=== PATIENT | male | born 1990 | race Caucasian/White ===

== ENCOUNTER 2024-05-03 08:50 | Day surgery (SDC) | payer SELFPAY, OTHER ==
[2024-05-03] VITALS (11 sets, daily range): BP systolic 96–119; BP diastolic 45–76; PULSE 58–74; RESP 16; TEMP 36.1–36.6; O2SAT 90–100; BMI 21.8
--- NOTE | 2024-05-03 09:07 | PRE.ANES_ITS ---
ASA Classification* ASA Classification ASA Classification: 2 Assessment & Plan Anesthesia* Anesthesia Assessment Anesthesia Assessment: Discussed sedation and/or anesthesia options, risks, benefits, and alternatives with patient/parents/legal guardian/POA. Questions invited. The patient/parents/legal guardian/POA seems to understand and agrees to proceed with anesthesia plan. Reviewed the physical assessment, medical history, allergy history and patient home medications list prior to surgery/procedure/anesthetic and documented any changes. Performed airway and anesthesia risk assessments. Anesthesia Type Anesthesia Type: General Anesthesia Focused Assessment* Airway Assessment Mouth opens: >3 cm Mallampati Score: II Focused Labs Anesthesia Preop lab: CBC CHEMISTRY COAG Pre-Assessment Diagnosis/Proposed Procedure Planned Operative Procedure(s): (R) Lap Robotic Right Inguinal Hernia w/mesh poss bilateral Anesthesia History Anesthesia History - personalized living assistant: Anesthesia History - personalized living assistant Hx Hospitalization No 04/19/24 08:06 Any Problems With Anesthesia No 04/19/24 08:06 Cholinesterase deficiency No 04/19/24 08:06 You/Your Family Experience No 04/19/24 08:06 fever (hyperthermia) with Relationship Recent Exposure to Contagious Disease Does patient have nerve No 04/19/24 08:06 stimulator Patient instructed to have device shut off --Does patient have Pacemaker or ICD? When Was Last Pacemaker Check QUESTION #4 FULL TEXT: You/Your Family Experience fever (hyperthermia) with Anesthesia Last Oral Intake Last Oral intake: Last Oral Intake NPO since Meds taken in AM with sips of water? Meds patient instructed to take am of surgery PONV PONV - personalized living assistant: PONV - personalized living assistant Female No 04/19/24 08:06 HX of Motion Sickness No 04/19/24 08:06 HX of N/V After Surgery No 04/19/24 08:06 Non-Smoker Yes 04/19/24 08:06 Duration of Surgery greater Yes 04/19/24 08:06 than 60 minutes Number of Risk Factors 2 04/19/24 08:06 PONV Score Moderate Risk 04/19/24 08:06 Height & Weight Height & Weight: Anesthesia: Height & Weight Height 6 ft 1 in 04/09/24 09:14 Respiratory Assessment Respiratory Assessment - personalized living assistant: Respiratory Tract Infection Hx - personalized living assistant Hx Respiratory Tract Infection No 04/19/24 08:06 STOP Sleep Apnea STOP Sleep Apnea - personalized living assistant: STOP Sleep Apnea - personalized living assistant Hx Hypertension No 04/19/24 08:06 Hx Sleep Apnea No 04/19/24 08:06 CPAP BIPAP Do you snore loudly (louder No 04/19/24 08:06 than talking or can be heard Do you often feel tired/ No 04/19/24 08:06 fatigued/ sleepy during daytime? Has anyone observed you stop No 04/19/24 08:06 breathing during sleep? STOP Results Negative 04/19/24 08:06 QUESTION #5 FULL TEXT : Do you snore loudly (louder than talking or can be heard through closed doors)? 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 Specify any problems Hx of Preganancy in last 3 N/A 04/19/24 08:06 Months Nurse Filling Out Transfusion [facility] 04/19/24 08:06 & Questions: Date: 04/19/24 04/19/24 08:06 Time: 08:10 04/19/24 08:06 Patient unable to answer at this time (ie. confused, unrespo /Reproduction History /Reproductive History - personalized living assistant: /Reproductive Hx- personalized living assistant Hx Now Gestational Age (in weeks): EDC: Hx Hx Para Hx Section SAB Active Medications Active Medications: Current Medications Generic Name Dose Route Start Last Admin Trade Name Freq PRN Reason Stop Dose Admin Cefazolin Sodium 2 gm/ N/A 20 mls @ 400 mls/hr 05/03/24 10:30 IV 05/03/24 10:32 PREOP ONE Sodium Chloride 1,000 mls @ 15 mls/hr 05/03/24 08:55 IV 05/08/24 22:14 .Q48H [facility] Protocol PFSH Medical History Right inguinal hernia Home Medications ?Medication ?Instructions ?Recorded ?Last Taken ?Type NK 04/09/24 Unknown History Allergy/AdvReac Type Severity Reaction Status Date / Time No Known Allergies Allergy Verified 04/19/24 08:05 Surgical History No history of previous surgery Social History Smoking Status: Never smoker alcohol intake: never substance use type: does not use Review of Systems (Anesthesia) ROS Narrative System reviewed and no additional complaints, except as documented.
--- NOTE | 2024-05-03 09:12 | HP.PCM_ITS ---
History and Physical Date of Admission: 05/03/24 Date of Service: 04/09/24 MR#: [id number] Acct: [id number] Name: LOLA LEDBETTER Rep #: [id number] : 1990 Provider: Dr. Roxi Stevenson MD Age/Sex: 33/M Location: [facility] Status: Signed Intake Vital Signs 04/09/2409:14 Height 6 ft 1 in Weight: 167 lb 8 oz BMI 22.1 BP 118/79 Blood Pressure Location Rt brachial Position Sitting Respiration 18 Pulse 71 Pulse Source Monitor Temp 97.5 F L Temp Source Temporal Pulse Oximetry (%) 98 Oxygen Delivery Method room air Intake Visit Reasons: R INGUINAL HERNIA Chief Complaint: R inguinal hernia Accompanied by: Is patient in pain?: No Allergies No Known Allergies Allergy (Unverified 04/09/24 09:15) Medications ?Medication ?Instructions ?Recorded ?Confirmed ?Type NK 04/09/24 04/09/24 History PFSH Medical History (Updated 04/09/24 @ 09:13 by Carmina Zhang LPN) Right inguinal hernia Social History (Updated 04/09/24 @ 09:14 by Carmina Zhang LPN) Smoking Status: Never smoker alcohol intake: never substance use type: does not use HPI HPI HPI: 33-year-old male presents due to right inguinal hernia. Patient states he has had this for about 3 years. Patient states it does cause him some soreness and is interested in having it repaired. Patient states he does reduce and he lays down however soon as he stands up it comes right back out. ROS General General: No weight change, appetite, fatigue, colon cancer, breast cancer or weakness HEENT HEENT: No difficulty swallowing, eye injury, eye surgery, swollen glands or hoarseness Endo Endocrine: No thyroid disease, diabetes mellitus, thyroid cancer, Hair loss, heat intolerance or cold intolerance Skin Skin: No rash or changing moles Musc Musculoskeletal: No back problems, arthritis, rheumatoid arthritis, gout or joint pain Cardio Cardiovascular: No murmur, pacemaker, heart disease, atrial fibrillation, high blood pressure, heart attack, heart stent, palpitations, shortness of breat with exertion or chest pain Psych Psychiatric: No depression, anxiety or hearing voices Resp Respiratory: No shortness of breath, No sleep apnea, No cough, No COPD, No asthma, No emphysema and No wheezing Gastro Gastrointestinal: No abdominal pain, No nausea or vomiting, No diarrhea, No constipation, No blood in stool, No acid reflux, No hemorrhoids, No ulcers, No gallbladder problem and No black,tarry stools [place] Hematologic: No blood thinners, No blood disorders, No bleeding, No anemia and No blood clots Neuro Neurologic: No numbness, No tingling and No weakness Exam Const General: cooperative, healthy appearing, comfortable and no acute distress [facility] Head: normocephalic and atraumatic Neck Neck: supple Resp Effort & Inspection: normal respiratory effort Cardio Rate: regular rate GI Inspection: non-distended Palpation: soft, no hernias and nontender Other: Right inguinal hernia?reducible no obvious hernia on the left side. Skin General: no rashes or lesions noted Neuro General: CN's II-XI intact bilaterally Extrem General: normal to inspection Psych Mental Status: mental status grossly normal Attitude: cooperative Assessment and Plan Assessment and Plan (1) Right inguinal hernia: Status: Acute Plan Plan to do a Robotic right inguinal hernia with mesh, possible bilateral. Reviewed the procedure with the patient including the risks, including but not limited to infection, bleeding, paresthesia, chronic pain, injury to small bowel or contents of the spermatic cord, and recurrence. All questions were answered. Roxi Stevenson M.D. Pager: [phone] [facility] [address] [place] [address], [address] [place] [address] Office: [phone] Coding Level of Care Code Off vis,new,level 3 Diagnoses Right inguinal hernia K40.90 04/11/24 0910 <Electronically signed by Roxi Stevenson MD> Date Roxi Stevenson MD
[2024-05-03] MEDS: 0.9% Normal Saline (1000mL) 1,000 ML 15 ML IV (09:27)
[2024-05-03] MEDS: Cefazolin 2 GM in Syringe IV (10:15)
[2024-05-03] MEDS: Bupivacaine Mpf 0.5% 30 ML VIAL (10:47)
--- NOTE | 2024-05-03 11:59 | PCM.OPRPT ---
Operative Report (Standard) Operative Information Date of Procedure: 05/03/24 Pre-Operative Diagnosis: Right inguinal hernia Post-Operative Diagnosis: Right indirect inguinal hernia Surgery/Procedure Performed: Robotic right inguinal hernia pair with mesh simplex printer installer: Yes Edge Dyer: Dmitry Priest Tasks completed by promotional advertising assistant: Opening & closing Type of Anesthesia: General/Supplemental RN Documented Start/Stop Times: Operation Date: 05/03/24 10:30 Case Time Into Pre-Op 05/03/24 08:54 Out of Pre-Op 05/03/24 10:07 Anesthesia Start 05/03/24 10:09 Into Room 05/03/24 10:09 Procedure Start 05/03/24 10:28 Procedure End 05/03/24 12:10 Anesthesia End 05/03/24 12:13 Out of Room 05/03/24 12:13 Into Recovery 05/03/24 12:17 Into Phase II Recovery 05/03/24 13:31 Out of Recovery 05/03/24 13:31 Out of Phase II 05/03/24 15:33 Procedure Start Time: 10:28 Procedure Stop Time: 12:10 Select all DRAINS/GRAFTS/IMPLANTS that apply: Prosthetic device Prosthetic device details: 3D max mid 10 cm x 16 cm Lot [id number] ref [id number] Special Medications: Ancef 2 g IV x 1 Estimated Blood Loss: 10 cc Specimen collected: Yes Description of specimen(s) removed: None Description of surgery: Indications: 33-year-old male presented with right inguinal hernia which was symptomatic. Robotic right inguinal hernia repair with mesh was elected patient was agreeable. Description of procedure: Patient was brought to operating room placed supine operative table. Timeout was completed verifying correct patient, procedure, site, positioning, special, prior to beginning procedure. General anesthesia was induced. Patient's arms were tucked and padded appropriately. Visiport was used to make the incision at Regan's point in the left upper quadrant. Entry into the abdomen was confirmed visually. Laparoscope was placed. Verifying no injury during initial trocar placement. Patient was placed in Trendelenburg position. Two 8 mm trochars were placed along the horizontal line in the midline and in the right upper quadrant. The initial 5 mm trocar was upsized to an 8 mm well under direct visualization. Both the inguinal regions were inspected and right indirect hernias were seen. The median umbilical ligament was divided sharply with electrocautery. Peritoneum was incised with the endoscopic scissors along a line 2 cm above the superior edge of the hernia defect extending from the median umbilical ligament to anterior superior iliac spine. Peritoneal flap was mobilized inferiorly using blunt and sharp dissection. The inferior epigastric vessels were exposed and symphysis pubis and identified. The indirect hernia sac was large and very adherent to the vessels as well as the vas deferens. There was injury to the vas deferens and it was ligated with bipolar. A large size Bard 3D max mid mesh right was used. The mesh was rolled longitudinally into a compact cylinder and passed through the trocar. The cylinder was placed along the inferior aspect of the working space and unrolled into place to completely cover the direct, indirect and femoral spaces. The mesh was secured in place medially to Mo's ligament using the 3-0 Vicryl suture as well as to the anterior abdominal wall. Care was taken to avoid the inferolateral triangle containing iliac vessels and genital nerves. The peritoneal flap was closed over mesh and secured with 3-0 V-Loc suture. After ensuring adequate hemostasis, the trochars were removed and pneumoperitoneum allowed to escape. The skin was closed with 4-0 Monocryl interrupted sutures and Steri-Strips. Patient's testicles are also confirmed in the scrotum bilaterally. Patient tolerated procedure well was taken to the postanesthesia care unit in stable condition. Surgical Findings: Large and attenuated hernia sac adherent vessels and vas deferens injury to the vas deferens and it was ligated Complications Complications: Yes Complication Details: Due to a large indirect sac and adherent vessels and vas deferens there was an injury to the vas deferens was ligated.
--- NOTE | 2024-05-03 12:03 | DCINST_ITS ---
Discharge Instructions Diet Discharge Diet: Light diet - advance as tolerated Activity Discharge Activity: May Not Drive (while taking narcotic pain medications.) May shower in (days): 1 Lifting Restrictions: no lifting >20 lbs x 2 wks, no strenuous exercise for 4 wks Additional Activity Instructions:: Recommend wearing scrotal support boxer briefs or briefs Dressing / Incision Call your doctor if your incision/area has: Continuous Slow Oozing, Sudden Increased Bleeding, Increased Pain/ Swelling, Increased Redness, Foul Smelling Discharge and Swelling at the incision site Call your doctor if you observe: Fever of 101 or Higher Remove Dressing in: 2 days Cleanse incision/area with: Soap & Water Additional Dressing/Incision Instructions:: Steri-Strips will fall off in 7 to 10 days, if they do not fall off okay to remove after 10 days. Follow Up Care Please Follow Up With: Roxi Stevenson MD When: Call the office for a follow-up appointment 2 weeks; after 5 PM and on the weekends call [phone] with any concerns. Test Results: Test results from this visit will be discussed in further detail at your follow- up appointment, if applicable. Discharge Plan Admission Attending Provider: Roxi Stevenson Primary Care Provider: Saul Nesbitt Instructions Additional Instructions / Restrictions: Okay to take ibuprofen 400-600 mg PO q6hr PRN and Tylenol 650-1000 mg p.o. every 6 hours as needed along with the oxycodone. Take all pain meds with food. Oxycodone can cause constipation recommend taking daily stool softener (i.e. Colace/docusate) while taking the pain meds. Recommend starting some MiraLAX in 1 to 2 days if no bowel movement. If still no bowel movement the following day recommend taking additional MiraLAX versus magnesium citrate half the bottle and waiting 4-6 hours if still no results take the other half the bottle. Print Language: Belgian Discharge Orders/Prescriptions Prescriptions: New oxycodone 5 mg capsule 5 mg PO Q6H PRN (Reason: pain) 3 Days Qty: 10 0RF Referrals / Follow Up: Saul Nesbitt PA [Primary Care Provider] - Disposition Disposition (needs filled in before D/C Order can be placed): Home, Self Care
--- NOTE | 2024-05-03 12:18 | PCM.POST.ANE ---
Anesthesia: Postop Eval I Current Vital Signs Temperature: 97 F Pulse Rate: 68 Blood Pressure: 99/63 Respiratory Rate: 16 Pulse Ox: 100 Oxygen Delivery Method: Room Air Assessment Airway patent: Yes Spontaneous unlabored respirations: Yes Mental status: Asleep nausea: No Vomiting: No Anesthesia Complication: No Fluid Hydration Crystalloid volume administer (ml): 900 Total IV fluid infused: 900 Progress Note Anesthesia document: Postop Eval 1 completed: Yes
--- NOTE | 2024-05-03 13:24 | POSTOPAN2_ITS ---
Anesthesia Postop Eval I Sum Postop Eval Completion status Anesthesia document: Postop Eval 1 completed: Yes Anesthesia Postop Eval I Summary Anesthesia Postop Eval I Summary: Anesthesia Postop Eval I: Assessment Summary Airway patent Yes 05/03/24 12:19 SEWER [email or web address] Spontaneous unlabored Yes 05/03/24 12:19 SEWER TAPPER.[email or web address] respirations Mental status Asleep 05/03/24 12:19 SEWER TAPPER.[email or web address] nausea No 05/03/24 12:19 SEWER TAPPER.[email or web address] Vomiting No 05/03/24 12:19 SEWER TAPPER.[email or web address] Anesthesia Postop Eval I: Fluid Summary Crystalloid volume administer 900 05/03/24 12:19 SEWER TAPPER.[email or web address] (ml) Colloids volume administered ( ml) Blood Product volume administered (ml) Total IV fluid infused 900 05/03/24 12:19 SEWER [email or web address].[email or web address] Anesthesia Postop Eval I: Summary Notes Anesthesia Complication No 05/03/24 12:19 SEWER TAPPER.[email or web address] Anesthesia Complication Comment: Post-operative progress note Anesthesia: Postop Eval II Evaluation Mental status: Awake Pain Level: 0 nausea: No Vomiting: No
--- NOTE | 2024-05-03 13:24 | PCM.POSTANE2 ---
Anesthesia Postop Eval I Sum Postop Eval Completion status Anesthesia document: Postop Eval 1 completed: Yes Anesthesia Postop Eval I Summary Anesthesia Postop Eval I Summary: Anesthesia Postop Eval I: Assessment Summary Airway patent Yes 05/03/24 12:19 HEALTH ASSESSMENT AND TREATMENT TEACHER.[email or web address] Spontaneous unlabored Yes 05/03/24 12:19 HEALTH ASSESSMENT AND TREATMENT TEACHER.[email or web address] respirations Mental status Asleep 05/03/24 12:19 HEALTH ASSESSMENT AND TREATMENT TEACHER.[email or web address] nausea No 05/03/24 12:19 HEALTH ASSESSMENT AND TREATMENT TEACHER.[email or web address] Vomiting No 05/03/24 12:19 HEALTH ASSESSMENT AND TREATMENT TEACHER.[email or web address] Anesthesia Postop Eval I: Fluid Summary Crystalloid volume administer 900 05/03/24 12:19 HEALTH ASSESSMENT AND TREATMENT TEACHER.[email or web address] (ml) Colloids volume administered ( ml) Blood Product volume administered (ml) Total IV fluid infused 900 05/03/24 12:19 HEALTH ASSESSMENT AND TREATMENT TEACHER.[email or web address] Anesthesia Postop Eval I: Summary Notes Anesthesia Complication No 05/03/24 12:19 HEALTH ASSESSMENT AND TREATMENT TEACHER.[email or web address] Anesthesia Complication Comment: Post-operative progress note Anesthesia: Postop Eval II Evaluation Mental status: Awake Pain Level: 0 nausea: No Vomiting: No
[2024-05-03] MEDS: Acetaminophen 325 MG Tablet 650 MG PO (14:46)
== END 2024-05-03 15:33 | disposition home or self-care (01) ==
LOC: SDC 08:51 → AC 08:52
PROVIDERS: PCP Physician Assistant; Referring Provider Surgery; Visit Provider Surgery
PROC: (CPT 49650; principal; 2024-05-03 10:10)
DX: K40.90 Unilateral inguinal hernia, without obstruction or gangrene, not specified as recurrent (principal)
CPT/HCPCS: 49650; S2900; 00840; J2405